=== PATIENT | female | born 1955 ===

== ENCOUNTER 2018-04-01 11:54 | Inpatient (IN) | payer OTHER ==
[~2018-04-01] VITALS: Ht 152.4 cm; Wt 72.1 kg
[2018-04-01] MEDS ORDERED: METFORMIN HCL500 MG PO (12:26)
[2018-04-01] MEDS ORDERED: MIRTAZAPINE15 M1 PO (12:27)
[2018-04-01] MEDS ORDERED: PRAVASTATIN SOD10 MG PO (12:27)
[2018-04-01] MEDS ORDERED: GLIMEPIRIDE2 MG PO (12:28)
[2018-04-01] MEDS ORDERED: ALPRAZOLAM1 M1 PO (12:29)
[2018-04-01] MEDS ORDERED: KOMBIGLYZE XR1 EAC1 PO (12:29)
[2018-04-01] MEDS ORDERED: ASA81 MG PO (12:30)
[2018-04-01] MEDS ORDERED: ATACAND32 MG PO (12:30)
[2018-04-01] MEDS ORDERED: ALTACE10 MG PO (12:30)
[2018-04-01] MEDS ORDERED: GLIMEPIRIDE1 MG PO (12:31)
[2018-04-01] MEDS ORDERED: FOSAMAX70 MG PO (12:32)
[2018-04-01] MEDS ORDERED: REMERON15 MG PO (12:32)
[2018-04-10] MEDS ORDERED: OXYC1TAB9 PO (08:10)
[2018-04-10] MEDS ORDERED: HYOSCYAMINE0.125 M1 SL (08:10)
[2018-04-10] MEDS ORDERED: INTESTINEX680 M1 PO (08:11)
== END 2018-04-10 10:14 | disposition home or self-care (01) | DRG 331 ==
LOC: SURH 04-07 07:00 → SURG 04-07 10:28 → O/R 04-07 10:28 → SURH 04-07 11:53 → SURG 04-07 15:41
PROVIDERS: Surgery
PROC: 0DJD8ZZ Inspection of Lower Intestinal Tract, Via Natural or Artificial Opening Endoscopic (ICD-10-PCS; 2018-04-07)
PROC: 0DTN4ZZ Resection of Sigmoid Colon, Percutaneous Endoscopic Approach (ICD-10-PCS; principal; 2018-04-07 07:00)
DX: K57.20 Diverticulitis of large intestine with perforation and abscess without bleeding (principal); I10 Essential (primary) hypertension; E11.9 Type 2 diabetes mellitus without complications